=== PATIENT | male | born 1990 | race Caucasian/White ===

== ENCOUNTER 2019-07-04 19:27 | Emergency (ER) | payer OTHER ==
[~2019-07-04] VITALS: Ht 177.8 cm; Wt 82.8 kg
[2019-07-04 19:38] VITALS: BP 129/87; Ht 177.8 cm; Wt 82.8 kg
== END 2019-07-04 21:12 | disposition home or self-care (01) ==
LOC: ED 19:27
DX: S61.211A Laceration without foreign body of left index finger without damage to nail, initial encounter (principal); W26.8XXA Contact with other sharp object(s), not elsewhere classified, initial encounter; Y93.89 Activity, other specified; Y92.89 Other specified places as the place of occurrence of the external cause; Y99.8 Other external cause status
CPT/HCPCS: 90715; A4570

== ENCOUNTER 2019-07-08 20:24 | Emergency (ER) | payer OTHER ==
[~2019-07-08] VITALS: Ht 177.8 cm; Wt 86.8 kg
[2019-07-08 20:34] VITALS: Ht 177.8 cm; Wt 86.8 kg
[2019-07-08 21:05] VITALS: BP 118/73
== END 2019-07-08 21:05 | disposition left against medical advice (07) ==
LOC: ED 20:24
DX: Z53.21 Procedure and treatment not carried out due to patient leaving prior to being seen by health care provider (principal)

== ENCOUNTER 2019-07-09 22:29 | Emergency (ER) | payer OTHER ==
[~2019-07-09] VITALS: Ht 177.8 cm; Wt 85.0 kg
[2019-07-10 00:01] VITALS: BP 111/87
== END 2019-07-10 00:01 | disposition home or self-care (01) ==
LOC: ED 22:29
DX: S61.211D Laceration without foreign body of left index finger without damage to nail, subsequent encounter (principal); L08.9 Local infection of the skin and subcutaneous tissue, unspecified; X58.XXXD Exposure to other specified factors, subsequent encounter